=== PATIENT | female | born 1960 | race Caucasian/White ===

== ENCOUNTER 2023-05-18 08:52 | Outpatient (AMB) | payer OTHER, SELFPAY ==
[2023-05-18 08:55] VITALS: BP 136/74; PULSE 83; RESP 14; O2SAT 99; BMI 35.5
--- NOTE | 2023-05-18 08:55 | MHC.OFFVIS ---
Intake Vital Signs 05/18/23 08:55 Height 5 ft 4 in Weight 207 lb BMI 35.5 BP 136/74 Blood Pressure Location Rt brachial Position Sitting Respiration 14 Pulse 83 Pulse Source Pulse Oximeter Pulse Oximetry (%) 99 Oxygen Delivery Method Room Air Intake Visit Reasons: Back, Leg Pain Allergies Penicillins Allergy (Intermediate, Verified 05/18/23 08:56) Hives Medication List - Last Reconciled 05/18/23 by Cynthia Bennett LPN lisinopril 20 mg PO DAILY simvastatin 20 mg PO BEDTIME HPI Back, Leg Pain HPI Details 67-year-old female presenting today for a new patient evaluation for back and leg pain. The patient was referred by Saman Patel PA-C. She has a longstanding history of back and leg pain associated with the numbness in her right toes and weakness in her bilateral legs, especially when standing from sitting positions, which started about three years ago. She describes her pain as an aching, stabbing in her back and posterior thighs, up to the knees, as well as some numbness in her legs, especially the right toe. The pain is rated at 7-8/10 in intensity. She also has occasional shoulder pain. She is unable to sleep normally. 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 Movements make the pain worse. Heat and oral medications give some relief. She has had C-sections twice in the past. [facility] Medical History (Updated 05/18/23 @ 09:36 by Edson Camargo MD) Anxiety GERD (gastroesophageal reflux disease) Hyperlipidemia Hypertension MDD (major depressive disorder) Migraines Obesity (BMI 30-39.9) Review of Systems Const All systems reviewed & are unremarkable except as noted in HPI and below Physical Exam Vital Signs: Last Vital Signs Pulse 83 05/18/23 08:55 Resp 14 05/18/23 08:55 BP 136/74 05/18/23 08:55 Pulse Ox 99 05/18/23 08:55 Oxygen Delivery Method Room Air 05/18/23 08:55 BMI result Body Mass Index 35.5 General: Appears afebrile. Alert and oriented. Mood and affect appropriate. Follows and participates in conversation appropriately. Respiratory effort is unlabored. Able to transition from sit to stand unassisted. Ambulates with bilaterally normal heel strike and toe off. Lumbar extension reproduces low back pain. Lumbar extension reproduces weakness in bilateral legs with buckling of the knees. Facet loading is positive. Results Reviewed Results Reviewed: 03/18/23: MR LUMBAR SPINE WITHOUT CONTRAST. Assessment & Plan Assessment & Plan (1) Spondylolisthesis, lumbar region: Code(s): M43.16 - Spondylolisthesis, lumbar region (2) Lumbar pars defect: Code(s): M43.06 - Spondylolysis, lumbar region (3) Lumbar spondylosis: Code(s): M47.816 - Spondylosis without myelopathy or radiculopathy, lumbar region Plan 1. Ordered plain films to assess for lumbar pars defect as well as flexion extension films to assess for instability. 2. Hold off on physical therapy until her spinal instability is ruled out. 3. Will schedule for bilateral diagnostic L3-L4-L5 medial branch blocks for facet mediated pain. Discussed the risks and benefits of the procedure with the patient in detail. All questions were answered. The patient is on board with the plan. Justification for interventional therapy: ? Patient with average pain > 6/10 ? Patient has exhausted conservative therapy including oral medication. Scribed for Dr. Camargo by Jj Berry, medical staff services coordinator, on 05/18/2023. I, Dr. Camargo, have personally reviewed and agree with the information entered by the scribe. Orders: Orders XR lumbar spine 6V w bending Today M43.06 - Spondylolysis, lumbar region, M43.16 - Spondylolisthesis, lumbar region, M47.816 - Spondylosis without myelopathy or radiculopathy, lumbar region Coding Level of Care Code New Pt Level 4 (12359) Diagnoses Spondylolisthesis, lumbar region M43.16 Lumbar pars defect M43.06 Lumbar spondylosis M47.816
== END 2023-05-18 09:48 | disposition home or self-care (01) ==
PROVIDERS: PCP Internal Medicine; Visit Provider Internal Medicine
DX: M43.16 Spondylolisthesis, lumbar region (principal); M47.816 Spondylosis without myelopathy or radiculopathy, lumbar region; M43.06 Spondylolysis, lumbar region
CPT/HCPCS: 99203

== ENCOUNTER 2023-05-18 08:52 | Outpatient (REF) | payer OTHER, SELFPAY ==
--- NOTE | ~2023-05-18 | XR_ITS ---
EXAMINATION: XR LUMBOSACRAL SPINE WITH OBLIQUES CLINICAL INFORMATION: Back pain L5 pars defect. Flexion and extension to assess for spinal instability. COMPARISON: MR lumbar spine 03/13/2023 TECHNIQUE: 7 views of the lumbar spine inclusive of flexion and extension views. FINDINGS: 5 nonrib-bearing lumbar-type vertebral bodies. Redemonstration of slight posterior wedging of the L5 vertebral body. Atherosclerotic aortoiliac calcifications. Surgical clips right upper quadrant. Mild dextroscoliosis of the lumbar spine. Facet arthropathy in the lower lumbar spine Degenerative changes with mild to moderate loss of disc space height at L5-S1 and L2-L3. Redemonstration of mild grade 1 spondylolisthesis at L5-S1. Possible pars defect at L5-S1 is difficult to confirm due to overlying bowel. XR/XR lumbar spine 6V w bending IMPRESSION: Degenerative changes with mild to moderate loss of disc space height at L5-S1 and L2-L3. Redemonstration of mild grade 1 spondylolisthesis at L5-S1. Possible pars defect at L5-S1 is difficult to confirm due to overlying bowel.
== END 2023-05-18 08:53 | disposition home or self-care (01) ==
LOC: HO.XRAY 08:52
PROVIDERS: PCP Internal Medicine; Visit Provider Internal Medicine
DX: M43.06 Spondylolysis, lumbar region (principal); M47.816 Spondylosis without myelopathy or radiculopathy, lumbar region
CPT/HCPCS: 72114

== ENCOUNTER 2023-06-24 05:56 | Outpatient (REF) | payer OTHER, SELFPAY | END 2023-06-24 05:57 | disposition home or self-care (01) | LOC: CF 05:56 | PROVIDERS: Visit Provider Internal Medicine | DX: M47.816 Spondylosis without myelopathy or radiculopathy, lumbar region (principal) | CPT/HCPCS: 64493; 64494 ==

== ENCOUNTER 2023-06-24 07:54 | Outpatient (AMB) | payer OTHER, SELFPAY ==
[2023-06-24 08:12] VITALS: BP 110/70; PULSE 71; RESP 14; O2SAT 97
--- NOTE | 2023-06-24 08:12 | MHC.OFFVIS ---
Intake Vital Signs 06/24/23 08:12 06/24/23 09:21 BP 110/70 110/70 Blood Pressure Location Lt brachial Lt brachial Position Sitting Sitting Respiration 14 14 Pulse 71 71 Pulse Source Pulse Oximeter Pulse Oximeter Pulse Oximetry (%) 97 97 Oxygen Delivery Method Room Air Room Air Intake Visit Reasons: reyes Dx L3-L4-L5 MBB Allergies Penicillins Allergy (Intermediate, Verified 06/24/23 08:13) Hives HPI reyes Dx L3-L4-L5 MBB HPI Details Patient presents for scheduled procedure. Denies any recent cough, cold, infection, fever or other significant changes in medical history since last office visit. [facility] Medical History (Updated 05/18/23 @ 09:36 by Edson Camargo MD) Obesity (BMI 30-39.9) Migraines MDD (major depressive disorder) Hypertension Hyperlipidemia GERD (gastroesophageal reflux disease) Anxiety Physical Exam Vital Signs: Last Vital Signs Pulse 71 06/24/23 08:12 Resp 14 06/24/23 08:12 BP 110/70 06/24/23 08:12 Pulse Ox 97 06/24/23 08:12 Oxygen Delivery Method Room Air 06/24/23 08:12 Office Procedures Lumbar/Sacral Facet Inj Details: Lumbar Medial Branch Block, Bilateral L3, L4 medial branches and L5 Dorsal Ramus (2 levels, 3 nerves) After obtaining written consent, pre-procedure blood pressure and pulse were recorded and are in the nursing record for review. The patient was placed in a prone position. The respective lumbosacral area was prepped with chloraprep and draped in sterile fashion. The skin over the target medial branch nerves was anesthetized with 0.5% lidocaine. A 22 gauge 5 inch needle was inserted into the target medial branch nerve under fluoroscopic guidance. No paresthesias were elicited with needle placement and aspiration was negative for blood and CSF. Next, 0.2cc of omnipaque 180 was injected to verify positioning. Next 0.5 ml 0.5% ropivicaine was injected (0.5cc total per level). The identical procedure was performed at the remaining levels. The skin was cleansed and a sterile bandage was applied. Following the procedure the patient's vital signs were stable. The patient tolerated the procedure well and no complications were encountered. Following the procedure the patient's vital signs were stable. The patient was discharged home in good condition with post-procedural instructions. Time Out: Immediately prior to the procedure, the following was verbally confirmed that there is a signed consent form and that the correct patient, planned procedure, site and side are consistent with documentation and that necessary equipment and/or blood products are available prior to the start of the case. Complications: none EBL: <5 cc 21519 - second level, with Fluoroscopy (bilateral) Procedure code (CPT) selection complete Assessment & Plan Assessment & Plan (1) Lumbar spondylosis: Code(s): M47.816 - Spondylosis without myelopathy or radiculopathy, lumbar region Plan Patient is status post bilateral L3, L4, L5 diagnostic MBBs. Patient tolerated procedure well and was discharged home in stable condition with discharge instructions. All questions were answered. We will follow-up via telephone or in clinic to assess response to therapy. A follow-up appointment was made during today's visit. Orders: Orders FL guidance in treatment room Today M47.816 - Spondylosis without myelopathy or radiculopathy, lumbar region Coding Level of Care Code Procedure Only Diagnoses Lumbar spondylosis M47.816 CPT Codes Facet Injection-Lumbar/Sacral - CPT: 23596 - second level, with Fluoroscopy ([id number])
[2023-06-24 09:21] VITALS: BP 110/70; PULSE 71; RESP 14; O2SAT 97
== END 2023-06-24 09:19 | disposition home or self-care (01) ==
LOC: HO.PMCPRC 07:54
PROVIDERS: PCP Internal Medicine; Visit Provider Internal Medicine
DX: M47.816 Spondylosis without myelopathy or radiculopathy, lumbar region (principal)
CPT/HCPCS: 64493; 64494

== ENCOUNTER 2023-06-26 08:13 | Outpatient (AMB) | payer OTHER, SELFPAY ==
--- NOTE | 2023-06-26 08:16 | MHC.OFFVIS ---
Intake Vital Signs 06/26/23 08:17 Height 5 ft 4 in Weight 208 lb BMI 35.7 Blood Pressure Location Lt brachial Position Sitting Respiration 14 Pulse 76 Pulse Source Pulse Oximeter Pulse Oximetry (%) 99 Oxygen Delivery Method Room Air Intake Visit Reasons: s/p reyes Dx L3-L4-L5 MBB Allergies Penicillins Allergy (Intermediate, Verified 06/26/23 08:18) Hives Medication List - Last Reconciled 06/26/23 by Cynthia Bennett LPN ibuprofen 800 mg PO TID lisinopril 20 mg PO DAILY simvastatin 20 mg PO BEDTIME HPI s/p reyes Dx L3-L4-L5 MBB HPI Details 62-year-old female who presents today to the office for a status post bilateral diagnostic L3-L4-L5 MBB. The patient reports 80% relief following the procedure. She states that she has bilateral low back pain, and her left side is worse than her right side. She also states that her knee is bothersome, and she has noticed weakness in her legs off and on. Past procedure: 06/24/23: Lumbar Medial Branch Block, Bilateral L3, L4 medial branches and L5 Dorsal Ramus (2 levels, 3 nerves): 80% relief 1 day. [facility] Medical History (Updated 05/18/23 @ 09:36 by Edson Camargo MD) Obesity (BMI 30-39.9) Migraines MDD (major depressive disorder) Hypertension Hyperlipidemia GERD (gastroesophageal reflux disease) Anxiety Review of Systems Const All systems reviewed & are unremarkable except as noted in HPI and below Physical Exam Vital Signs: Last Vital Signs Pulse 76 06/26/23 08:17 Resp 14 06/26/23 08:17 Pulse Ox 99 06/26/23 08:17 Oxygen Delivery Method Room Air 06/26/23 08:17 BMI result Body Mass Index 35.7 General: Appears afebrile. Alert and oriented. Mood and affect appropriate. Follows and participates in conversation appropriately. Respiratory effort is unlabored. Able to transition from sit to stand unassisted. Ambulates with bilaterally normal heel strike and toe off. Results Reviewed Results Reviewed: 05/18/23: XR LUMBOSACRAL SPINE WITH OBLIQUES FINDINGS: 5 nonrib-bearing lumbar-type vertebral bodies. Redemonstration of slight posterior wedging of the L5 vertebral body. Atherosclerotic aortoiliac calcifications. Surgical clips right upper quadrant. Mild dextroscoliosis of the lumbar spine. Facet arthropathy in the lower lumbar spine Degenerative changes with mild to moderate loss of disc space height at L5-S1 and L2-L3. Redemonstration of mild grade 1 spondylolisthesis at L5-S1. Possible pars defect at L5-S1 is difficult to confirm due to overlying bowel. IMPRESSION: Degenerative changes with mild to moderate loss of disc space height at L5-S1 and L2-L3. Redemonstration of mild grade 1 spondylolisthesis at L5-S1. Possible pars defect at L5-S1 is difficult to confirm due to overlying bowel. Assessment & Plan Assessment & Plan (1) Lumbar spondylosis: Code(s): M47.816 - Spondylosis without myelopathy or radiculopathy, lumbar region (2) Lumbar pars defect: Code(s): M43.06 - Spondylolysis, lumbar region Plan Discussed temporary nerve stimulator vs. RFA as a possible treatment option after successful diagnostic block showing a facetogenic source of her pain. Recommend trial of formal physical therapy at this time. The patient will receive a call to schedule an appointment. A script of tizanidine 2 mg was provided to the patient today for pain management. The patient is interested in trialing lumbar medial branch PNS after the two months of physical therapy if PT is not helpful. I informed the patient that insurance approval is required. We will file a PA for approval and keep her updated. Once the PA is approved, we will schedule her for left L3 medial branch temporary nerve stimulator placement. Discussed the risks and benefits of the procedure with the patient in detail. All questions were answered. The patient is on board with the plan. Justification for interventional therapy: ? Patient with average pain > 6/10 ? Patient has exhausted conservative therapy including oral medication. Scribed for Dr. Camargo by Jj Berry, medical aides teacher, on 06/26/2023. I, Dr. Camargo, have personally reviewed and agree with the information entered by the scribe. Orders: Orders PT Evaluation and Treatment Today M43.06 - Spondylolysis, lumbar region, M47.816 - Spondylosis without myelopathy or radiculopathy, lumbar region Medications: New tizanidine 2 mg PO Q12H PRN 60 caps 1RF muscle spasticity Coding Level of Care Code Est Pt Level 3 (41604) Diagnoses Lumbar spondylosis M47.816 Lumbar pars defect M43.06
[2023-06-26 08:17] VITALS: PULSE 76; RESP 14; O2SAT 99; BMI 35.7
== END 2023-06-26 08:41 | disposition home or self-care (01) ==
PROVIDERS: PCP Internal Medicine; Visit Provider Internal Medicine
DX: M47.816 Spondylosis without myelopathy or radiculopathy, lumbar region (principal); M43.06 Spondylolysis, lumbar region
CPT/HCPCS: 99213

== ENCOUNTER → 2023-06-26 08:13 | Outpatient (BNVA) | payer OTHER, SELFPAY | PROVIDERS: PCP Internal Medicine; Visit Provider Internal Medicine ==